=== PATIENT | male | born 1975 | race Caucasian/White ===

== ENCOUNTER 2016-08-08 20:39 | Emergency (ER) | payer OTHER ==
[~2016-08-08] VITALS: Ht 180.3 cm; Wt 68.0 kg
[2016-08-08 21:01] LABS: ABSOLUTE BASOPHIL COUNT 0 /CUMM (0.0-0.2); ABSOLUTE EOSINOPHIL COUNT 0.1 /CUMM (0.0-0.7); ABSOLUTE LYMPH COUNT 1.7 /CUMM (1.2-3.4); ABSOLUTE MONOCYTE COUNT 0.6 /CUMM (0.10-0.60); BASOPHIL % 0.3 % (0.0-2.0); EOSINOPHIL % 1.1 % (0-5); HEMATOCRIT 45.1 % (42-52); MEAN CORPUSCULAR HGB 30.8 PG (27.0-31.0); MEAN CORPUSCULAR VOLUME 93.3 FL (80.0-94.0); MEAN PLATELET VOLUME 9.3 FL (7.4-10.4); PLATELET COUNT 271 /CUMM (130-400); RBC DISTRIBUTION WIDTH 13.5 % (11.5-14.5); RED BLOOD CELL CT 4.83 /CUMM (4.70-6.10); WHITE BLOOD CELL COUNT 10.3 /CUMM (4.8-10.8)
--- NOTE | 2016-08-08 23:16 | ED GENERAL ADULT ---
History of Present Illness General Chief Complaint: Chest Pain Stated Complaint: CP, ABD PAIN, X 3 HRS Source: patient Exam Limitations: no limitations Allergies Coded Allergies: No Known Drug Allergies (NKDA 08/08/16) Triage Note: PT TO ED C/O "NOT FEELING RIGHT FOR 2 DAYS" STATES HAS CHEST PAIN WHEN "WHEN I FEEL MY HEART RACING IN MY CHEST" DENIES AT THIS TIME. ALSO C/O PAIN IN SIDES OF ABDOMEN, CONSTANT. DENIES N/V. +DIARRHEA TODAY. DENIES UTI S/S. "IT FELT LIKE AN ANXIETY ATTACK" DENIES PMH OF ANXIETY Triage Nurses Notes Reviewed? yes Onset: Gradual Duration: day(s): (1) Timing: no prior history Injury Environment: home Severity: mild Severity Numbers: 4 No Modifying Factors: none HPI: Patient is a 41-year-old male presenting to the emergency Department complaint episode of palpitations chest pain nothing going on and off for the past one day. He reports he had 2 episodes today. Ate something about 20 minutes. He has been under a lot of stress, unsure if this is related. He does report that he had bilateral arm tingling during these episodes. Neck currently having symptoms. No nausea or vomiting. He also reported some upper abdominal pain. Nothing seemed to make the symptoms better or worse. Denies any recent viral illness. Denies any cough or congestion. No sick contacts or travel. Denies any change in bowel habits. No urinary frequency urgency or dysuria. (DANIEL WADE,SONYA) Vital Signs & Intake/Output Vital Signs & Intake/Output Vital Signs Date Time Temp Pulse Resp B/P Pulse O2 O2 Flow FiO2 Ox Delivery Rate 08/09 0233 98.0 49 20 120/62 98 Room Air 08/09 0049 95.9 48 20 106/77 98 Room Air 08/08 2252 95.9 53 20 117/71 99 Room Air 08/087 98.8 73 18 128/80 98 Room Air ED Intake and Output 08/09 0000 08/08 1200 Intake Total Output Total Balance Patient 150 lb Weight Reconcile Medications No Known Home Medications (SARAH WEBBER MD) Past History Travel History Traveled to [place] past 21 day No Medical History Any Pertinent Medical History? see below for history Neurological: NONE EENT: NONE Cardiovascular: NONE Respiratory: NONE Gastrointestinal: NONE Hepatic: NONE Renal: NONE Musculoskeletal: NONE Psychiatric: NONE Endocrine: NONE Surgical History Surgical History: non-contributory Psychosocial History What is your primary language Sami Tobacco Use: Quit >30 days ago ETOH Use: occasional use Illicit Drug Use: denies illicit drug use Family History Hx Contributory? No (SONYA GUNTER) Review of Systems Review of Systems Constitutional: Reports: no symptoms. Comments Review of systems: See HPI, All other systems negative. Constitutional, no chills fever or weight loss HEENT: No visual changes no sore throat no congestion Cardiovascular: No chest pain , orthopnea or ankle swelling Skin, no jaundice no rashes Respiratory: No dyspnea cough sputum or hemoptysis GI: No nausea no vomiting : No dysuria No hematuria Muscle skeletal: no back pain, no neck pain, Neurologic: No numbness no confusion Psych: No stress anxiety or depression,. Heme/endocrine: No bruising no bleeding no polyuria or polydipsia Immunology: No splenectomy or history of AIDS (SONYA GUNTER) Physical Exam Physical Exam General Appearance: well developed/nourished, no apparent distress, alert, awake , comfortable Comments: Well-developed well-nourished person in no acute distress HEENT: Pupils equally round and reactive to light and accommodation. Nose is atraumatic. Moist oral mucosa. No pharyngeal erythema. Neck: Supple, no lymphadenopathy, normal range of motion without pain or tenderness Back: Nontender, no CVA tenderness. Full range of motion Cardiovascular: Regular rate and rhythms no murmurs rubs or gallops, normal JVP Respiratory: Chest nontender. No respiratory distress.breath sounds clear to auscultation bilaterally Abdomen: Soft, nontender nondistended, no appreciable organomegaly. Normal bowel sounds. No ascites, no rebound or guarding Extremity: No edema, no calf tenderness to palpation, normal and equal pulses. Neuro: Alert oriented x3 Skin: No appreciable rash on exposed skin, skin is warm and dry. Psych: Mood and affect is normal, memory and judgment is normal. (SONYA GUNTER) Core Measures ACS in differential dx? No ASA ordered for poss ACS? No-ACS ruled out CVA/TIA Diagnosis: No Severe Sepsis Present: No Septic Shock Present: No (SARAH WEBBER MD) Progress Differential Diagnoses I considered the following diagnoses in my evaluation of the patient: ACS, anxiety, pneumonia, bronchitis, CHF, electrolyte abnormality, viral syndrome Diagnostic Imaging: Viewed by Me: Radiology Read. Discussed w/RAD: Radiology Read. CXR Impression: PATIENT: ZABRINA LEYVA PRESENT AGE: 41 PATIENT ACCOUNT NO: [id number] : 73 LOCATION: [facility] ORDERING PHYSICIAN: SONYA WADE SERVICE DATE: 08/08/16 EXAM TYPE: RAD - XRY-CHEST XRAY, PA AND LATERAL EXAMINATION: XR CHEST CLINICAL INFORMATION: Cardiomegaly. Chest pain. COMPARISON: None TECHNIQUE: 2 views of the chest were obtained. FINDINGS: Heart size is normal. The cardiac and mediastinal contours are normal. There is no pulmonary vascular congestion. The lungs are clear. No pleural effusion or pneumothorax. No osseous abnormality. IMPRESSION: Unremarkable examination. DICTATED BY: BIPIN GODOY MD DATE/TIME DICTATED:08/08/162330 FURRIER DESIGNER:JOSE ALBERTO Initial ED EKG: SINUS RHYTHM AT 65 BPM Hand-Off Endorsed To: SARAH WEBBER MD Endorsed Time: 46 Pending: labs Comments: Patient is asymptomatic on arrival. Alert and oriented, no acute distress. Vitals are stable. EKG is normal sinus. We will assess troponin is patient reports intermittent chest pain. Patient does report that his been under a lot of stress. Patient informed of lab work results. We will repeat the troponin 4 hours from the first. Patient resting comfortably. SIGNED OUT TO DR WEBBER PENDING REPEAT TROPONIN. (DANIEL WADE,SONYA) Plan of Care: Orders Procedure Date/time Status TROPONIN LEVEL 08/09 44 Complete EKG 08/09 44 Active Add-on Test (ER Only) 08/09 32 Active Add-on Test (ER Only) 08/08 2310 Active Telemetry/Assigner 08/08 2310 Active TSH REFLEX 08/08 2052 Complete TROPONIN LEVEL 08/08 2050 Complete LIPASE 08/08 2050 Complete COMPREHENSIVE METABOLIC PANEL 08/08 2050 Complete CBC WITHOUT DIFFERENTIAL 08/08 2050 Complete AMYLASE 08/08 2050 Complete EKG 08/08 2040 Active Laboratory Tests 08/09/16 0039: Troponin I < 0.01 08/08/162052: Anion Gap 14, Estimated GFR > 60, BUN/Creatinine Ratio 13.0, Glucose 96, Calcium 9.8, Total Bilirubin 0.8, AST 18, ALT 35, Alkaline Phosphatase 63, Troponin I < 0.01, Total Protein 7.4, Albumin 4.6, Globulin 2.8, Albumin/Globulin Ratio 1.6, Amylase 40, Lipase 68, TSH &T3 &Free T4 Intrp 2.790, CBC w Diff NO MAN DIFF REQ, RBC 4.83, MCV 93.3, MCH 30.8, RDW 13.5, MPV 9.3, Gran % 77.0 H, Lymphocytes % 16.2 L, Monocytes % 5.4, Eosinophils % 1.1, Basophils % 0.3, Absolute Granulocytes 8.0 H, Absolute Lymphocytes 1.7, Absolute Monocytes 0.6, Absolute Eosinophils 0.1, Absolute Basophils 0, PUBS MCHC 33.0 Departure Departure Time of Disposition: 37 Disposition: HOME OR SELF CARE Condition: Stable Clinical Impression Primary Impression: Chest pain Qualifiers: Chest pain type: unspecified Qualified Code: R07.9 - Chest pain, unspecified Secondary Impressions: Palpitations Referrals: UNKNOWN (PCP/Family) Additional Instructions: Follow-up with your primary care physician call to make an appointment. Increase fluids. Return for worsening symptoms or concerns. Departure Forms: Customer Survey General Discharge Information (SONYA GUNTER) Departure Prescriptions: Current Visit Scripts No Known Home Medications PA/COMMERCIAL ACCOUNT MANAGER Co-Sign Statement Statement: ED Attending supervision documentation- x I saw and evaluated the patient. I have also reviewed all the pertinent lab results and diagnostic results. I agree with the findings and the plan of care as documented in the PA's/COMMERCIAL ACCOUNT MANAGER's documentation. [] I have reviewed the ED Record and agree with the PA's/COMMERCIAL ACCOUNT MANAGER's documentation. [] Additions or exceptions (if any) to the PAs/COMMERCIAL ACCOUNT MANAGER's note and plan are summarized below: [] (SARAH WEBBER MD) Critical Care Note Critical Care Note Critical Care Time: non-applicable (SARAH WEBBER MD)
--- NOTE | 2016-08-08 23:35 | RADIOLOGY REPORT ---
EXAMINATION: XR CHEST CLINICAL INFORMATION: Cardiomegaly. Chest pain. COMPARISON: None TECHNIQUE: 2 views of the chest were obtained. FINDINGS: Heart size is normal. The cardiac and mediastinal contours are normal. There is no pulmonary vascular congestion. The lungs are clear. No pleural effusion or pneumothorax. No osseous abnormality. IMPRESSION: Unremarkable examination.
[2016-08-09 02:33] VITALS: BP 120/62
== END 2016-08-09 02:35 ==
LOC: ERH 20:39
PROVIDERS: Emergency Medicine
DX: R07.9 Chest pain, unspecified (principal); R00.2 Palpitations; R20.2 Paresthesia of skin; R10.10 Upper abdominal pain, unspecified
CPT/HCPCS: 93005; 93010